=== PATIENT | male | born 1990 | race Caucasian/White ===

== ENCOUNTER 2018-04-21 23:25 | Emergency (ER) | payer MEDICAID ==
[2018-04-21] MEDS ORDERED: Haloperidol Lactate 5 MG/ML SDV ONE (23:33)
[2018-04-21] MEDS ORDERED: LORazepam 2 MG/ML SDV ONE (23:33)
[2018-04-21] MEDS ORDERED: diphenhydrAMINE 50 MG/ML SDV ONE (23:33)
[2018-04-21] MEDS ORDERED: Lidocaine 1% with EPINEPHrine 1:100,000 50 ML MDV ONE (23:37)
[2018-04-21] MEDS ORDERED: diphenhydrAMINE 50 MG/ML SDV IM ONE (23:37)
[2018-04-21] MEDS ORDERED: diphenhydrAMINE 50 MG/ML SDV IVPUSH ONE (23:57)
[2018-04-21] MEDS ORDERED: LORazepam 2 MG/ML SDV IM PRN (23:58)
[2018-04-21] MEDS ORDERED: Haloperidol Lactate 5 MG/ML SDV IM ONE (23:59)
[2018-04-21] MEDS ORDERED: LORazepam 2 MG/ML SDV IVPUSH ONE (23:59)
[2018-04-21] MEDS ORDERED: Sodium Chloride 0.9% 10 ML Syringe FLUSH PRN (23:59)
[2018-04-22] MEDS ORDERED: Diphtheria,Pertussis(Acell),Tetanus Vaccine 0.5 ML SDV IM ONE (00:36)
--- NOTE | 2018-04-22 01:08 | EDM.PDOC ---
<Elaine Lee Jaki - Last Filed: 04/22/18 01:26> ED HPI GENERAL MEDICAL PROBLEM - General Chief Complaint: Laceration Stated Complaint: BLEEDING Time Seen by Provider: 04/21/18 23:25 Source of Information: Reports: Family History Limitations: Reports: Altered Mental Status - History of Present Illness INITIAL COMMENTS - FREE TEXT/NARRATIVE: Abdomen is a otherwise healthy 28-year-old male who presents to the emergency department today via private car with his mom for concerns of a laceration to his left arm after he punched his left arm through a window. Patient arrives in the back seat of a car intoxicated, full of blood, actively bleeding from left arm. He has been drinking whiskey all night according to his girlfriend. Patient was assisted out of the backseat of his mom's car with staff and police. He became instantly belligerent and attempting to get off the cart and was placed in 4. restraints and given IM Haldol, Ativan, Benadryl. Family denies any drug use or other concerns. Onset: Today, Sudden - Related Data Allergies Allergy/AdvReac Type Severity Reaction Status Date / Time No Known Allergies Allergy Verified 04/21/18 23:59 Home Meds: Home Meds NK [No Known Home Meds] 04/21/18 [History] Past Medical History - Past Health History Medical/Surgical History: Denies Medical/Surgical History - Infectious Disease History Infectious Disease History: Reports: Other (See Below) Other Infectious Disease History: unable to obtain Social & Family History - Tobacco Use Smoking Status *Q: Unknown Ever Smoked - Caffeine Use Caffeine Use: Reports: Other Other Caffeine Use: unknown - Recreational Drug Use Recreational Drug Use: Yes Recreational Drug Type: Reports: Other (see below) Other Recreational Drug Type: unable to obtain information ED ROS GENERAL - Review of Systems Review Of Systems: Unable To Obtain ED EXAM, SKIN/RASH Exam: See Below Exam Limited By: Intoxication Eye Exam: Bilateral Eye: EOMI, PERRL Respiratory/Chest: No Respiratory Distress, Lungs Clear, Normal Breath Sounds Cardiovascular: Regular Rate, Rhythm, No Murmur Peripheral Pulses: 2+: Brachial (L), Radial (L) GI/Abdominal: Normal Bowel Sounds, Soft Skin: Wound/Incision Location, Skin: Upper Extremity, Left Course - Vital Signs Last Recorded V/S: Last Vital Signs Temp 35.9 C 04/23/18 05:32 Pulse 61 04/23/18 05:32 Resp 16 04/23/18 05:32 BP 101/57 L 04/23/18 05:32 Pulse Ox 97 04/23/18 05:32 Procedure note Laceration repair 1) Patient has bleeding laceration left anterior arm, antecubital measuring 1 cm , horizontal mattress suture placed with 5-0 vicryl, 3, 5-0 ethilon sutures used to close. 2) Deep laceration to left anterior arm, AC, lateral portion measuring 2cm across, deep, no foreign body, lacerated muscle (assessed with Dr. Kolb) muscle repaired with 5-0 vicryl, running stitch, 3 5-0 Ethilon placed to close. 3) Puncture laceration to left elbow, closed with 1, 5-0 Ethilon sutures. I did discuss closure with our transformation specialist surgeon Dr. Mancilla, if patient wakes up and shows any evidence of tendon involvement or nerve injury, will require transfer. DT updated. Patient give a liter of NS and additional IV ativan in order to complete laceration repairs. He at 0120 is hemodynamically stable, airway is intact, and he is breathing even and non labored. Blood ETOH here is .232, HGB stable at 14. No other injuries on exam. Patient now in 2 point restraints as of 0100. Patient will be handed off to Dr. Kolb for ongoing management and to re- assess his motor/neuro function of left upper extremity once sober. - Orders/Labs/Meds Labs: Laboratory Tests 04/22/18 04/22/18 04/22/18 Range/Units 00:31 00:31 00:35 WBC (4.5-11.0) K/uL RBC (4.30-5.90) M/uL Hgb 14.7 (12.0-15.0) g/dL Hct (40.0-54.0) % MCV (80-98) fL MCH (27-31) pg MCHC (32-36) % Plt Count (150-400) K/uL Neut % (Auto) (36-66) % Lymph % (Auto) (24-44) % Terrell % (Auto) (2-6) % Eos % (Auto) (2-4) % Baso % (Auto) (0-1) % Sodium 141 (140-148) mmol/L Potassium 3.3 L (3.6-5.2) mmol/L Chloride 104 (100-108) mmol/L Carbon Dioxide 21 (21-32) mmol/L Anion Gap 19.3 H (5.0-14.0) mmol/L BUN 14 (7-18) mg/dL Creatinine 0.9 (0.8-1.3) mg/dL Est Cr Clr Drug Dosing 125.05 mL/min Estimated GFR (MDRD) > 60 (>60) Glucose 105 (74-106) mg/dL Calcium 7.9 L (8.5-10.1) mg/dL Total Bilirubin 0.3 (0.2-1.0) mg/dL AST 22 (15-37) U/L ALT 41 (12-78) U/L Alkaline Phosphatase 68 (46-116) U/L Total Protein 7.0 (6.4-8.2) g/dL Albumin 3.8 (3.4-5.0) g/dL Globulin 3.2 (2.3-3.5) g/dL Albumin/Globulin Ratio 1.2 (1.2-2.2) Urine Opiates Screen (NEGATIVE) Ur Oxycodone Screen (NEGATIVE) Urine Methadone Screen (NEGATIVE) Ur Propoxyphene Screen (NEGATIVE) Ur Barbiturates Screen (NEGATIVE) Ur Tricyclics Screen (NEGATIVE) Ur Phencyclidine Scrn (NEGATIVE) Ur Amphetamine Screen (NEGATIVE) U Methamphetamines Scrn (NEGATIVE) Urine MDMA Screen (NEGATIVE) U Benzodiazepines Scrn (NEGATIVE) U Cocaine Metab Screen (NEGATIVE) U Marijuana (THC) Screen (NEGATIVE) Ethyl Alcohol 232 mg/dL 04/22/18 04/22/18 Range/Units 00:36 06:40 WBC 10.6 (4.5-11.0) K/uL RBC 5.36 (4.30-5.90) M/uL Hgb 14.6 (12.0-15.0) g/dL Hct 45.2 (40.0-54.0) % MCV 84 (80-98) fL MCH 27 (27-31) pg MCHC 32 (32-36) % Plt Count 313 (150-400) K/uL Neut % (Auto) 48 (36-66) % Lymph % (Auto) 38 (24-44) % Terrell % (Auto) 10 H (2-6) % Eos % (Auto) 3 (2-4) % Baso % (Auto) 0 (0-1) % Sodium (140-148) mmol/L Potassium (3.6-5.2) mmol/L Chloride (100-108) mmol/L Carbon Dioxide (21-32) mmol/L Anion Gap (5.0-14.0) mmol/L BUN (7-18) mg/dL Creatinine (0.8-1.3) mg/dL Est Cr Clr Drug Dosing mL/min Estimated GFR (MDRD) (>60) Glucose (74-106) mg/dL Calcium (8.5-10.1) mg/dL Total Bilirubin (0.2-1.0) mg/dL AST (15-37) U/L ALT (12-78) U/L Alkaline Phosphatase (46-116) U/L Total Protein (6.4-8.2) g/dL Albumin (3.4-5.0) g/dL Globulin (2.3-3.5) g/dL Albumin/Globulin Ratio (1.2-2.2) Urine Opiates Screen Negative (NEGATIVE) Ur Oxycodone Screen Negative (NEGATIVE) Urine Methadone Screen Negative (NEGATIVE) Ur Propoxyphene Screen Negative (NEGATIVE) Ur Barbiturates Screen Negative (NEGATIVE) Ur Tricyclics Screen Negative (NEGATIVE) Ur Phencyclidine Scrn Negative (NEGATIVE) Ur Amphetamine Screen Presumptive positive H (NEGATIVE) U Methamphetamines Scrn Presumptive positive H (NEGATIVE) Urine MDMA Screen Presumptive positive H (NEGATIVE) U Benzodiazepines Scrn Presumptive positive H (NEGATIVE) U Cocaine Metab Screen Negative (NEGATIVE) U Marijuana (THC) Screen Negative (NEGATIVE) Ethyl Alcohol mg/dL Meds: Medications Discontinued Medications Generic Name Dose Route Start Last Admin Trade Name Freq PRN Reason Stop Dose Admin Diphenhydramine HCl 50 mg 04/21/18 23:57 04/22/18 00:22 Benadryl IVPUSH 04/21/18 23:58 Not Given ONETIME ONE Diphenhydramine HCl 50 mg 04/21/18 23:37 04/22/18 00:36 Benadryl IM 04/21/18 23:38 50 mg ONETIME ONE Administration Diphenhydramine HCl Confirm 04/21/18 23:33 Benadryl Administered 04/21/18 23:34 Dose 50 mg .ROUTE .STK-MED ONE Diphtheria/Tetanus/Acell Pertussis 0.5 ml 04/22/18 00:36 04/22/18 01:46 Adacel IM 04/22/18 00:37 0.5 ml .ONCE ONE Administration Haloperidol Lactate 5 mg 04/21/18 23:59 04/22/18 00:22 Haldol IM 04/22/18 00:00 5 mg ONETIME ONE Administration Haloperidol Lactate 5 mg 04/22/18 04:21 04/22/18 04:25 Haldol IVPUSH 04/22/18 04:22 5 mg ONETIME ONE Administration Haloperidol Lactate Confirm 04/22/18 04:22 04/22/18 05:31 Haldol Administered 04/22/18 04:23 Not Given Dose 5 mg .ROUTE .STK-MED ONE Haloperidol Lactate Confirm 04/21/18 23:33 Haldol Administered 04/21/18 23:34 Dose 5 mg .ROUTE .STK-MED ONE Sodium Chloride 1,000 mls @ 999 mls/hr 04/22/18 01:30 04/22/18 01:48 Normal Saline IV 999 mls/hr ASDIRECTED ARTEMIO Administration Sodium Chloride 1,000 mls @ 150 mls/hr 04/22/18 02:48 04/22/18 02:49 Normal Saline IV 100 mls/hr ASDIRECTED ARTEMIO Administration Lidocaine/Epinephrine Confirm 04/21/18 23:37 Xylocaine 1% With Epinephrine 1:100,000 Administered 04/21/18 23:38 Dose 50 ml .ROUTE .STK-MED ONE Lorazepam 2 mg 04/21/18 23:58 04/22/18 00:23 Ativan IM 2 mg ONETIME PRN Administration Agitation Lorazepam 2 mg 04/21/18 23:59 04/22/18 00:33 Ativan IVPUSH 04/22/18 00:00 2 mg ONETIME ONE Administration Lorazepam 2 mg 04/22/18 02:56 04/22/18 03:04 Ativan IVPUSH 04/22/18 02:57 2 mg ONETIME ONE Administration Lorazepam Confirm 04/22/18 02:58 04/22/18 05:30 Ativan Administered 04/22/18 02:59 Not Given Dose 2 mg .ROUTE .STK-MED ONE Lorazepam 0.5 mg 04/22/18 13:22 Ativan PO 04/22/18 13:23 ONETIME ONE Lorazepam Confirm 04/21/18 23:33 Ativan Administered 04/21/18 23:34 Dose 2 mg .ROUTE .STK-MED ONE Nicotine Polacrilex 4 mg 04/23/18 09:06 04/23/18 09:13 Nicorelief CHEW 04/23/18 09:07 4 mg Q2H ONE Administration Sodium Chloride 10 ml 04/21/18 23:59 04/22/18 01:53 Saline Flush FLUSH 10 ml ASDIRECTED PRN Administration Keep Vein Open Departure - Departure Disposition: Eloped 07 Clinical Impression: Methamphetamine abuse - Discharge Information Referrals: PCP,None [Primary Care Provider] - Forms: ED Department Discharge Care Plan Goals: Dr Kolb will call with instructions to the care of the left arm, <Marla Cartwright - Last Filed: 04/23/18 10:54> Course - Re-Assessments/Exams Free Text/Narrative Re-Assessment/Exam: 04/22/18 17:27 pt was evaluated and he remained very sleepy. he wanted his restrains off and they were taken off of his hands but left on his feet. . He was give\n ativan .5 because of some agitation. He was given a tray of food and he ate very little. Will continue with a iv rate of 150cc. Dr Quintero will be coming on this pm to manage pt. 04/22/18 17:35 04/23/18 10:47 The crisis team evaluated the pt and reccommend that he have a skilled nursing treatment plan-- inpatient care and then out pt . Pt absolutely refused to listen and walked out AMA. [facility] Dr Kolb call regarding his arm in terms of stitch removal and whether he needs further surgery to the left arm. 04/23/18 10:54 Departure - Departure Time of Disposition: 10:51 Condition: Fair <Theron Kolb - Last Filed: 04/23/18 18:28> Course - Vital Signs Text/Narrative:: Called patient's phone and left instruction for wound care, suture removal, follow up @ 1825h on 04/23/18-STARR
[2018-04-22] MEDS ORDERED: Sodium Chloride 0.9% 1,000 ML IV SCH ×2 (01:30→02:48)
[2018-04-22] MEDS ORDERED: LORazepam 2 MG/ML SDV IVPUSH ONE (02:56)
[2018-04-22] MEDS ORDERED: LORazepam 2 MG/ML SDV ONE (02:58)
[2018-04-22] MEDS ORDERED: Haloperidol Lactate 5 MG/ML SDV ONE (04:22)
[2018-04-22] MEDS: Haloperidol Lactate 5 MG/ML SDV IVPUSH ONE (04:25)
[2018-04-22] MEDS ORDERED: LORazepam 0.5 MG Tab PO ONE (13:22)
[2018-04-23] MEDS ORDERED: Nicotine Polacrilex 2 MG Gum CHEW ONE (09:06)
== END 2018-04-23 11:09 | disposition left against medical advice (07) ==
LOC: JP.ED 23:25
DX: S51.012A Laceration without foreign body of left elbow, initial encounter (principal); S41.112A Laceration without foreign body of left upper arm, initial encounter; F15.10 Other stimulant abuse, uncomplicated; F10.129 Alcohol abuse with intoxication, unspecified; Z23 Encounter for immunization; Y90.7 Blood alcohol level of 200-239 mg/100 ml; W22.8XXA Striking against or struck by other objects, initial encounter
CPT/HCPCS: 12001; 12031; 13121; 36415; 51702; 80053; 80305; 85018; 85025; 90471; 90715; 96361; 96372; 96374; 96375; 96376; 99283; 99284; A9270; G0480; J1200; J1630; J2060; J7030; J7050; 12002

== ENCOUNTER 2022-11-04 21:51 | Emergency (ER) | payer MEDICAID ==
[2022-11-04 23:22] LABS: ESTIMATED GFR 91 mL/min (>60)
== END 2022-11-05 00:06 | disposition home or self-care (01) ==
LOC: JP.ED 21:51
DX: M62.838 Other muscle spasm (principal); F15.10 Other stimulant abuse, uncomplicated; F17.210 Nicotine dependence, cigarettes, uncomplicated; Z86.16 Personal history of COVID-19; Z77.110 Contact with and (suspected) exposure to air pollution
CPT/HCPCS: 36415; 80053; 80305-QW; 81001; 84484; 85025; 93005; 99284